=== PATIENT | male | born 1975 | race Caucasian/White ===

== ENCOUNTER → 2018-11-25 | Outpatient (CLI) | payer BC ==
[~2018-11-25] VITALS: Ht 171.4 cm; Wt 116.6 kg
[2018-11-25 16:17] VITALS: BP 144/100; PULSE 88
== END ==
LOC: LIGHT 13:33
DX: E16.9 Disorder of pancreatic internal secretion, unspecified (principal); I10 Essential (primary) hypertension; F32.9 Major depressive disorder, single episode, unspecified; Z68.39 Body mass index [BMI] 39.0-39.9, adult; Z71.3 Dietary counseling and surveillance
CPT/HCPCS: G0463

== ENCOUNTER → 2018-12-15 | Outpatient (CLI) | payer BC | LOC: LIGHT 08:39 | DX: E16.9 Disorder of pancreatic internal secretion, unspecified (principal); I10 Essential (primary) hypertension; F32.9 Major depressive disorder, single episode, unspecified ==

== ENCOUNTER → 2018-12-23 | Outpatient (CLI) | payer BC ==
[~2018-12-23] VITALS: Ht 171.4 cm; Wt 116.3 kg
[~2018-12-23] MED LIST: ADIPEX-P37.5 MG PO
[2018-12-23 16:28] VITALS: BP 130/96; PULSE 68
== END ==
LOC: LIGHT 08:42
DX: E16.9 Disorder of pancreatic internal secretion, unspecified (principal); I10 Essential (primary) hypertension; F32.9 Major depressive disorder, single episode, unspecified; E66.01 Morbid (severe) obesity due to excess calories; Z68.39 Body mass index [BMI] 39.0-39.9, adult; Z71.3 Dietary counseling and surveillance
CPT/HCPCS: G0463

== ENCOUNTER → 2018-12-29 | Outpatient (CLI) | payer BC | LOC: LIGHT 14:26 → BHSO 14:26 | DX: E16.9 Disorder of pancreatic internal secretion, unspecified (principal); I10 Essential (primary) hypertension; F32.9 Major depressive disorder, single episode, unspecified; Z68.39 Body mass index [BMI] 39.0-39.9, adult; Z71.3 Dietary counseling and surveillance ==

== ENCOUNTER → 2019-01-20 | Outpatient (CLI) | payer BC | LOC: BHSO 08:38 | DX: Z76.89 Persons encountering health services in other specified circumstances (principal) ==

== ENCOUNTER → 2019-03-23 | Outpatient (CLI) | payer BC | LOC: LIGHT 07:25 | DX: E16.9 Disorder of pancreatic internal secretion, unspecified (principal); I10 Essential (primary) hypertension; F32.9 Major depressive disorder, single episode, unspecified; Z68.39 Body mass index [BMI] 39.0-39.9, adult; Z71.3 Dietary counseling and surveillance ==

== ENCOUNTER 2019-04-08 09:12 | Day surgery (SDC) | payer BC ==
[2019-04-08] VITALS (10 sets, daily range): BP systolic 117–141; BP diastolic 60–89; PULSE 58–82; TEMP 97.3–98.5
[~2019-04-08] VITALS: Ht 170.2 cm; Wt 111.6 kg
[2019-04-08] MEDS ORDERED: MOTRIN 200200 MG/TAB PO (10:13)
--- NOTE | 2019-04-08 16:04 | NUR ---
PATIENT ARRIVED TO ROOM 332 FROM PACU VIA BED. DROWSY BUT AROUSED TO NAME. A/O X 4. FOLLOOWS COMMANDS. DENIES C/O PAIN OR DISCOMFORT. POST OP VITAL SIGHNS INITIATED. LUNG SOUNDS CTA THROUGHOUT. 4 LAP SITES COVERED WITH BANDAIDS CDI. MANJIT DRAIN IN PLACE TO LEFT ABD TO BULD SUCTION. 10MLS BLOD DRAINAGE PRESENT.
--- NOTE | 2019-04-08 23:04 | NUR ---
PATIENT ASSESSMENT COMPLETED. PATIENT HERE WITH DX OF GASTRIC SLEEVE. PATIENT IS DOING WELL. ALERT AND ORIENTED AND VSS. PATIENT HAS 4 LAP SITES, ALL CLEAN DRY AND INTACT. PATIENT DID COUGH AND HAD SOME BLEEDING THROUGH BANDAID ON MID ABDOMEN. REINFORCED WITH GAUZE AND MICROFOAM TAPE. PATIENT DOES HAVE MANJIT DRAIN, WITH MINIMAL BLOODY DRAINAGE. PATIENT WAS ABLE TO DRINK 8OZ OF BLUE GATORADE, TOLERATED WELL. ALL MEDS GIVEN. PATIENT AMBULATED IN [facility] TWICE WITH NO ISSUES. PATIENT RESTING IN BED. CALL LIGHT WITHIN REACH, WILL CONTINUE TO MONITOR
[2019-04-09 00:58] VITALS: BP 116/68; PULSE 64; TEMP 98
--- NOTE | 2019-04-09 01:54 | NUR ---
PATIENT HAVING HARD TIME TOELRATING CLEAR LIQUIDS, STATES HE DRY HEAVES WHEN TRYING TO DRINK CHICKEN BROTH. ALSO C/O PAIN IN ABDOMEN. PRN DILAUDID GIVEN PATIENT REFUSED TO TRY ORAL NORCO. CALL LIGHT WITHIN REACH, WILL CONTINUE TO MONITOR
[2019-04-09 03:51] VITALS: BP 119/77; PULSE 81; TEMP 97.9
--- NOTE | 2019-04-09 07:10 | NUR ---
Patient down for swallow study
[2019-04-09 08:02] VITALS: BP 125/106; PULSE 64; TEMP 97.6
--- NOTE | 2019-04-09 08:20 | NUR ---
Patient in bed resting. Alert and oriented x 3. Shift assessment complete. Patient Denies pain at this time. INT iv fluids, patient states he is tolerating oral intake without N/V. Lap sites x 4 with edges well approximated. Hakeem drain to left lower quadrant with bloody drainage present. Denies further needs at this time.
--- NOTE | 2019-04-09 09:48 | NUR ---
Initial visit; Patient thanked Cosmetics Supervisor for stopping though declined spiritual care at this time. Cosmetics Supervisor wished patient well and will remain available to him.
[2019-04-09 11:48] VITALS: BP 124/78; PULSE 61; TEMP 98.3
--- NOTE | 2019-04-09 15:14 | NUR ---
MAYA met with the patient to discuss a discharge plan. The patient lives in [place] with his , Ofelia and their six children. The patient does not use DME and reports independence with ADLs. The patient's PCP is Dr. Mckeon in [place] and receives medications from [facility] with no difficulties. The patient reports he has a living will. The patient plans to return home upon discharge with Ofelia providing transportation. There are no additional needs at this time.
--- NOTE | 2019-04-09 15:37 | NUR ---
Discontinued FARHAD drain, patient tolerated procedure well. Gauze and tegaderm dressing in place.
--- NOTE | 2019-04-09 16:00 | NUR ---
Patient educated on signs and symptoms of infection. Patient educated on diet. All questions answered. States pain 6/10 to abdomen, medications given per orders. All questions answered. Denies further needs at this time. Patient out by wheelchair with surgical staff and spouse.
[2019-04-09 16:59] VITALS: BP 118/77; PULSE 67; TEMP 97.8
[2019-04-09] MEDS ORDERED: NORCO 325 MG-51 TAB PO (17:02)
[2019-04-09] MEDS ORDERED: ZOFRAN 4MG T4 MG/TAB PO (17:02)
== END 2019-04-09 16:00 | disposition home or self-care (01) ==
LOC: SDCO 09:12 → JCC 15:40 → SDCO 04-09 16:00
DX: E66.01 Morbid (severe) obesity due to excess calories (principal); Z68.41 Body mass index [BMI] 40.0-44.9, adult; Z88.5 Allergy status to narcotic agent; I10 Essential (primary) hypertension
CPT/HCPCS: OP; J0330; J0360; J0690; J1100; J1170; J1885; J2250; J2405; J2704; J2710; J3010; J7042; J7120

== ENCOUNTER → 2019-04-13 | Outpatient (CLI) | payer BC ==
[~2019-04-13] VITALS: Ht 170.2 cm; Wt 107.3 kg
[~2019-04-13] MED LIST changes: +MOTRIN 200200 MG/TAB PO; +NORCO 325 MG-51 TAB PO; +ZOFRAN 4MG T4 MG/TAB PO
[2019-04-13 13:40] VITALS: BP 130/66; PULSE 88
== END ==
LOC: LIGHT
DX: E16.9 Disorder of pancreatic internal secretion, unspecified (principal); I10 Essential (primary) hypertension; Z98.84 Bariatric surgery status; Z71.3 Dietary counseling and surveillance; F32.9 Major depressive disorder, single episode, unspecified; Z68.37 Body mass index [BMI] 37.0-37.9, adult